=== PATIENT | female | born 1975 | race Hispanic/Latino ===

== ENCOUNTER 2023-10-02 04:00 | Emergency (ER) | payer MEDICARE, OTHER ==
[~2023-10-02] VITALS: Ht 167.6 cm; Wt 99.8 kg
[2023-10-02 06:02] VITALS: BP 148/76
== END 2023-10-02 06:03 | disposition home or self-care (01) ==
LOC: ED 04:00
DX: H60.92 Unspecified otitis externa, left ear (principal); F32.A Depression, unspecified; H68.003 Unspecified Eustachian salpingitis, bilateral
CPT/HCPCS: 96372; 99282; J1885